=== PATIENT | female | born 1955 | race Caucasian/White ===

== ENCOUNTER 2021-05-17 20:04 | Observation (INO) ==
[2021-05-17 20:33] LABS: Basophils # 0.1 10*3/uL (0.0-0.2); Basophils % 1.1 % (0.0-0.8); Eosinophils # 0.1 10*3/uL (0.0-0.87); Eosinophils % 2.9 % (0.00-10.9); Hematocrit 35.3 VOL% (35.7-47.0); Hemoglobin 11.2 GM/DL (12.0-16.0); Immature Granulocytes % 0.2 %; Immature Granulocytes Absolute 0.01 #; Lymphocytes # 1.2 10*3/uL (1.4-4.0); Lymphocytes % 26.5 % (21.3-54.2); Mean Corpuscular HGB Conc 31.7 GM/DL (32-36); Mean Corpuscular Volume 88.3 FL (87-102); Mean Platelet Volume 13.2 FL (9.6-12.0); Monocytes % 11.2 % (1.7-12.7); Neutrophils % 58.1 % (38.7-73.9); Platelet Count 116 T/CUMM (130-400); Red Cell Distribution Width 14.9 % (9.3-17.3); White Blood Count 4.5 T/CUMM (4-12)
[2021-05-17 20:46] LABS: Albumin 4.1 G/DL (3.4-5.0); Bilirubin,Total 0.7 MG/DL (0.2-1.0); Calcium 8.3 MG/DL (8.5-10.1); Osmolality,Calculated 278.4 MOS/KG (273-304); Potassium 4.4 MMOL/L (3.5-5.1); Total Protein 6.6 G/DL (6.4-8.2)
[2021-05-17 20:56] LABS: Anisocytosis 1+; Atypical Lymphocytes Few; Hypochromasia Slight; Lymphocytes 26 % (20-55); Macrocytosis 1+; Microcytosis 1+; Platelet Estimate Adequate; Polychromasia Slight; Segmented Neutrophils 64 % (50-85); Total Cells Counted 100
[2021-05-17 20:57] LABS: Burr Cells Slight; Poikilocytosis Slight
[2021-05-17] MEDS ORDERED: NITROGLYCERIN 2% OINT 1 INCH/GM PACK TOP STA (21:01)
[2021-05-17] MEDS ORDERED: PANTOPRAZOLE 40 MG VIAL IV STA (21:01)
[2021-05-17] MEDS ORDERED: ONDANSETRON 4 MG/2 ML VIAL IV STA (21:01)
[2021-05-17] MEDS ORDERED: ASPIRIN 325 MG TABLET PO STA (21:01)
[2021-05-17] MEDS ORDERED: ENOXAPARIN 100 MG/ML SYRINGE SUBCUT STA (21:10)
[2021-05-17] MEDS ORDERED: ACETAMINOPHEN 325 MG TABLET PO PRN (22:05)
[2021-05-17] MEDS ORDERED: ONDANSETRON 4 MG/2 ML VIAL IV PRN (22:05)
[2021-05-17] MEDS ORDERED: GLUCAGON 1 MG VIAL IM PRN (22:05)
[2021-05-17] MEDS ORDERED: DEXTROSE 50% 25 GM/50 ML VIAL IV PRN (22:05)
[2021-05-17] MEDS ORDERED: DOCUSATE SODIUM 100 MG CAPSULE PO PRN (22:05)
[2021-05-18 04:12] VITALS: BP 140/71
[2021-05-18 04:27] LABS: Basophils # 0.1 10*3/uL (0.0-0.2); Basophils % 1.2 % (0.0-0.8); Eosinophils # 0.1 10*3/uL (0.0-0.87); Eosinophils % 1.4 % (0.00-10.9); Hemoglobin 10.8 GM/DL (12.0-16.0); Immature Granulocytes % 0.2 %; Immature Granulocytes Absolute 0.01 #; Lymphocytes # 1.1 10*3/uL (1.4-4.0); Lymphocytes % 27.2 % (21.3-54.2); Mean Corpuscular HGB Conc 31.8 GM/DL (32-36); Mean Corpuscular Volume 87.4 FL (87-102); Mean Platelet Volume 14.7 FL (9.6-12.0); Monocytes % 10.1 % (1.7-12.7); Neutrophils % 59.9 % (38.7-73.9); Platelet Count 109 T/CUMM (130-400); Red Blood Count 3.89 MC/CUMM (3.8-5.5); Red Cell Distribution Width 15.1 % (9.3-17.3); White Blood Count 4.2 T/CUMM (4-12)
[2021-05-18 04:47] LABS: Hypochromasia Slight; Microcytosis Slight; Platelet Estimate Decreased
[2021-05-18 04:50] LABS: Calcium 8.3 MG/DL (8.5-10.1); Potassium 3.7 MMOL/L (3.5-5.1); Risk Ratio 2.02; Thyroid Stimulating Hormone 2.59 uIU/ml (0.358-3.74)
[2021-05-18] MEDS ORDERED: NITROGLYCERIN SL 0.4 MG TABLET SL PRN (07:07)
[2021-05-18] MEDS ORDERED: PANTOPRAZOLE 40 MG TABLET PO SCH (09:00)
[2021-05-18] MEDS ORDERED: HYDROXYCHLOROQUINE 200 MG TABLET PO SCH (09:00)
[2021-05-18] MEDS ORDERED: ATORVASTATIN 80 MG TABLET PO SCH (09:00)
[2021-05-18] MEDS ORDERED: NIACIN ER 500 MG TABLET PO SCH (09:00)
[2021-05-18] MEDS ORDERED: lisinopriL 10 MG TABLET PO SCH (09:00)
[2021-05-18] MEDS ORDERED: ASPIRIN EC 325 MG TABLET PO SCH (09:00)
[2021-05-18] MEDS ORDERED: CITALOPRAM 20 MG TABLET PO SCH (09:00)
[2021-05-18] MEDS ORDERED: METOPROLOL TARTRATE 25 MG TABLET PO SCH (09:00)
[2021-05-18] MEDS ORDERED: GABAPENTIN 300 MG CAPSULE PO SCH (09:00)
[2021-05-18] MEDS ORDERED: ISOSORBIDE MONONITRATE 30 MG TABLET PO SCH (09:00)
[2021-05-19] MEDS ORDERED: LEVOTHYROXINE 50 MCG TABLET PO SCH (07:00)
== END 2021-05-18 13:05 | disposition home or self-care (01) ==
LOC: N.EDINP 20:04 → N.ED 20:04 → N.CC 23:39
PROVIDERS: ADMIT Internal Medicine; ATTEND Internal Medicine